=== PATIENT | male | born 1965 | race Two or more races ===

== ENCOUNTER 2024-02-13 17:46 | Emergency (ER) | payer BC ==
[~2024-02-13] VITALS: Ht 167.6 cm; Wt 86.2 kg
[2024-02-13 18:18] LABS: BASOPHILS # (AUTO) 0.1 K/UL (0.0-0.2); BASOPHILS % (AUTO) 0.9 % (0.0-2.0); EOSINOPHILS # (AUTO) 0.2 K/uL (0.0-0.7); EOSINOPHILS % (AUTO) 2.5 % (0.0-7.0); HEMATOCRIT 43.6 % (36.7-47.1); HEMOGLOBIN 14.9 g/dL (12.5-16.3); LYMPHOCYTES # (AUTO) 3.2 K/uL (0.8-4.8); LYMPHOCYTES % (AUTO) 35.8 % (20.5-51.5); MEAN CORPUSCULAR HEMOGLOBIN 31.3 uug (23.8-33.4); MEAN CORPUSCULAR HGB CONC 34 g/dL (32.5-36.3); MEAN CORPUSCULAR VOLUME 91.9 fL (73.0-96.2); MONOCYTES # (AUTO) 0.5 K/uL (0.1-1.30); NEUTROPHILS # (AUTO) 4.9 K/uL (1.8-8.9); NEUTROPHILS % (AUTO) 54.8 % (38.5-71.5); PLATELET COUNT (AUTO) 276 K/uL (152-348); RED BLOOD CELL COUNT(AUTO) 4.75 MIL/uL (4.06-5.63); RED CELL DISTRIBUTION WIDTH 13.2 % (12.1-16.2)
[2024-02-13 18:23] LABS: DIFFERENTIAL COMMENT 1
[2024-02-13 18:27] LABS: CALCIUM 9.2 mg/dL (8.5-10.1); CARBON DIOXIDE 27 mmol/L (21-32); CHLORIDE 105 mmol/L (98-107); CREATININE 0.8 mg/dL (0.6-1.3); GLUCOSE 89 mg/dL (74-106); POTASSIUM 4.1 mmol/L (3.5-5.1); SODIUM SERUM 141 mmol/L (136-145); UREA NITROGEN, BLOOD 21 mg/dL (7-18)
[2024-02-13 18:41] LABS: ALANINE AMINOTRANSFERASE 22 U/L (16-63); ALBUMIN 4.2 g/dL (3.4-5.0); ALKALINE PHOSPHATASE 60 U/L (50-136); ASPARTATE AMINOTRANSFERASE 8 U/L (15-37); BILIRUBIN,DIRECT 0.1 mg/dL (0.0-0.2); BILIRUBIN,TOTAL 0.4 mg/dL (0.2-1.0); NT-PRO BNP 63 pg/mL (0-125); TOTAL PROTEIN, SERUM 7.7 g/dL (6.4-8.2)
[2024-02-13] MEDS ORDERED: LAMO200T2 PO (18:56)
[2024-02-13] MEDS ORDERED: QUET50TA PO (18:56)
[2024-02-13] MEDS ORDERED: BISO5TAB20 PO (18:56)
[2024-02-13] MEDS ORDERED: FLUO20CA36 PO (18:56)
[2024-02-13] MEDS ORDERED: FENO135C PO (18:56)
[2024-02-13] MEDS ORDERED: AMLO-212 PO (18:56)
[2024-02-13 19:35] LABS: ETHANOL < 3 MG/DL (0-10)
[2024-02-13 20:04] VITALS: BP 112/76; TEMP 97.6; O2SAT 97
== END 2024-02-13 20:04 | disposition home or self-care (01) ==
LOC: ER 17:46
DX: R07.89 Other chest pain (principal); I10 Essential (primary) hypertension; Z79.899 Other long term (current) drug therapy; Z88.6 Allergy status to analgesic agent
CPT/HCPCS: 36415; 71045; 84484; 85025; 85730; A4606; A4663; G0480